=== PATIENT | female | born 1945 | race Caucasian/White ===

== ENCOUNTER 2017-05-06 09:50 | Emergency (ER) | payer OTHER ==
[2017-05-06 10:04] VITALS: BMI 35.7
[2017-05-06] MEDS ORDERED: SODIUM CHLORIDE 1,000 ML IV STA (11:00)
--- NOTE | 2017-05-06 11:48 | PDOC ---
History of Present Illness - General Chief Complaint: Diarrhea Stated Complaint: WEAKNESS Time Seen by Provider: 05/06/17 10:24 History Source: Patient Exam Limitations: No Limitations - History of Present Illness Travel History: No Initial Comments: 05/06/17 11:48 72-year-old female with history of diverticulitis hypertension and hypothyroidism presents to the emergency room with complaints of diarrhea for the past 4 days which she describes as a brown water and [id number] stool. Patient states 5 days prior she had eaten eggplant but states which she initially thought aggravated her diverticulitis and so took Imodium with moderate improvement but only to return the following day. Patient denies specific abdominal tenderness but states generalized abdominal cramping. Patient denies fever, chills, nausea, dysuria, back pain, chest pain, shortness of breath. Patient states did not take her blood pressure medication this morning and called Dr. Webster her GI physician who's nurse, recommended she come to the ER. Timing/Duration: reports: intermittent Quality: reports: mild, cramping Abdominal Pain Onset Location: reports: generalized abdomen Pain Radiation: reports: no radiation Activities at Onset: reports: none Aggravating Factors: improves with: Eating Alleviating Factors: improves with: None Past History - Past Medical History Allergies/Adverse Reactions: Allergies Allergy/AdvReac Type Severity Reaction Status Date / Time No Known Allergies Allergy Verified 05/06/17 10:04 Home Medications: Ambulatory Orders Imipramine HCl 25 mg PO DAILY 05/06/17 Levothyroxine [Synthroid -] 50 mcg PO DAILY 05/06/17 Simvastatin [Zocor -] 20 mg PO HS 05/06/17 Valsartan/Hydrochlorothiazide [Valsartan-Hctz 80-12.5 mg Tab] 1 each PO DAILY GI Disorders: Yes (DIVERTICULITIS) HTN: Yes Hypercholesterolemia: Yes Seizures: Yes - Psycho/Social/Smoking Cessation Hx Suicidal Ideation: No Smoking History: Never smoked Information on smoking cessation initiated: No Patient Lives Alone: No Lives with/in: spouse/SO Abd/GI Specific PMHX - Complaint Specific PMHX Diverticulitis: Yes Review of Systems - Review of Systems Able to Perform ROS?: Yes Constitutional: Yes: Weakness HEENTM: No: Symptoms Reported Respiratory: No: Symptoms reported Cardiac (ROS): No: Symptoms Reported ABD/GI: No: Symptoms Reported : No: Symptoms Reported Musculoskeletal: No: Symptoms Reported Integumentary: No: Symptoms Reported Neurological: No: Symptoms reported *Physical Exam - Vital Signs Last Vital Signs Temp Pulse Resp BP Pulse Ox 97.7 F 68 18 159/71 97 05/06/17 10:00 05/06/17 10:00 05/06/17 10:00 05/06/17 10:00 05/06/17 10:00 - Physical Exam General Appearance: Yes: Nourished, Appropriately Dressed. No: Apparent Distress HEENT: positive: Pharynx Normal. negative: Pale Conjunctivae Respiratory/Chest: positive: Lungs Clear, Normal Breath Sounds. negative: Respiratory Distress, Accessory Muscle Use Cardiovascular: positive: Regular Rhythm, Regular Rate. negative: Murmur Gastrointestinal/Abdominal: positive: Normal Bowel Sounds, Soft, Tenderness ( mild generalized). negative: Distended, Guarding, Rebound Musculoskeletal: negative: CVA Tenderness Extremity: positive: Normal Capillary Refill. negative: Pedal Edema Integumentary: positive: Normal Color, Warm, Moist Neurologic: positive: Motor Strength 5/5 (ambulatory) ED Treatment Course - LABORATORY CBC & Chemistry Diagram: 05/06/17 11:34 05/06/17 11:34 - RADIOLOGY Radiology Studies Ordered: Category Date Time Status ABDOMEN & PELVIS CT W/O CONTR [CT] Stat CT Scan 05/06/17 11:00 Ordered Medical Decision Making - Medical Decision Making 05/06/17 11:53 patient with complaints of intermittent diarrhea for the past which and was amping. Patient does e history of diverticulitis and was told by her [facility] nurse to come to the ER for further evaluation. Patient examined generalized mild tenderness normal vital signs. Based on patient's history of prent illness and clinical presentation. patient will have labs including magnesium, IV fluid, urinalysis due to recent UTI [address] with by mouth contrast only. 05/06/17 15:22 Laboratory Tests 05/06/17 05/06/17 05/06/17 11:34 11:34 11:34 WBC 7.8 Hgb 14.6 Hct 43.2 Plt Count 199 Sodium 140 Potassium 3.8 Chloride 105 Carbon Dioxide 26 Anion Gap 9 BUN 12 Creatinine 0.6 Lactic Acid 1.6 Magnesium 2.2 Urine Blood Urine Nitrite Ur Leukocyte Esterase 05/06/17 12:05 WBC Hgb Hct Plt Count Sodium Potassium Chloride Carbon Dioxide Anion Gap BUN Creatinine Lactic Acid Magnesium Urine Blood 1+ H Urine Nitrite Negative Ur Leukocyte Esterase 1+ H CT shows a 2.1 cm mass identified within the right lower lobe as seen on image 22. Centrilobular emphysema changes are present. There is no obstruction within the bowel and noted uncomplicated diverticulosis of the colon. There is no mesenteric stranding free air/fluid or drainable fluid collection seen. In regards to the mass malignancy is to be excluded. Call will be placed to Dr. Webster patient's br[facility]. 05/06/17 15:[address] Webster's nurse Sue who states to send patient to the office with a stool specimen so she may check for C. difficile. Patient attempted to go here twice with no result. Patient states had the nodule to the right lower lobe biopsy which was negative a few months ago. Will discharge patient home with recommendations to eat stool binding foods *DC/Admit/Observation/Transfer Diagnosis at time of Disposition: Generalized abdominal pain Diarrhea Qualifiers: Diarrhea type: unspecified type Qualified Code(s): R19.7 - Diarrhea, unspecified - Discharge Dispostion Disposition: HOME Condition at time of disposition: Good - Referrals Referrals: Mary Mcconnell [Primary Care Provider] - Loly Baker MD [Staff Physician] - - Patient Instructions Printed Discharge Instructions: DI for Diarrhea and Traveler's Diarrhea -- Adult Additional Instructions: Please try to obtain a specimen so that the nurse at Dr. Baker's office may sent for evaluation. If you develop bloody stool, fever, inability to tolerate by mouth, or severe abdominal pain please return to the ED
[2017-05-06 12:07] LABS: BASOPHIL 0.7 % (0-2.0); EOSINOPHIL 1.2 % (0-4.5); MCH 28.4 pg (25.7-33.7); MCHC 33.8 g/dl (32.0-36.0); MEAN PLT VOLUME 8.6 fl (7.5-11.1); NEUTROPHILS 66.4 % (42.8-82.8); PLATELET COUNT 199 K/MM3 (134-434); RDW 14.8 % (11.6-15.6); WHITE BLOOD COUNT 7.8 K/mm3 (4.0-10.0)
[2017-05-06 12:23] LABS: URINE APPEARANCE CLEAR; URINE BILIRUBIN NEGATIVE (NEGATIVE); URINE BLOOD 1+ (NEGATIVE); URINE COLOR LTYELLOW; URINE GLUCOSE (UA) NEGATIVE (NEGATIVE); URINE KETONE NEGATIVE (NEGATIVE); URINE NITRITE NEGATIVE (NEGATIVE); URINE PROTEIN NEGATIVE (NEGATIVE); URINE UROBILINOGEN NEGATIVE mg/dL (0.2-1.0)
[2017-05-06 12:23] LABS: ALBUMIN 3.8 g/dl (3.4-5.0); ALK PHOS 78 U/L (45-117); ANION GAP 9 (8-16); BILIRUBIN,TOTAL 0.5 mg/dL (0.2-1.0); CO2 26 mmol/L (21-32); CREATININE 0.6 mg/dL (0.55-1.02); GLUCOSE,RANDOM 91 mg/dL (74-106); SGPT/ALT 41 U/L (12-78); TOT PROT 6.6 g/dl (6.4-8.2)
[2017-05-06 12:26] LABS: MAGNESIUM 2.2 mg/dL (1.8-2.4); SGOT/AST 27 U/L (15-37)
[2017-05-06 12:28] LABS: URINE LEUK ESTERASE 1+ (NEGATIVE)
--- NOTE | 2017-05-06 12:53 | PDOC ---
*Physical Exam - Vital Signs Last Vital Signs Temp Pulse Resp BP Pulse Ox 97.7 F 68 18 159/71 97 05/06/17 10:00 05/06/17 10:00 05/06/17 10:00 05/06/17 10:00 05/06/17 10:00 ED Treatment Course - LABORATORY CBC & Chemistry Diagram: 05/06/17 11:34 05/06/17 11:34 - ADDITIONAL ORDERS Additional order review: Laboratory Results 05/06/17 05/06/17 05/06/17 12:05 11:34 11:34 Sodium Potassium Chloride Carbon Dioxide Anion Gap BUN Creatinine Creat Clearance w eGFR Random Glucose Lactic Acid 1.6 Calcium Magnesium Cancelled Total Bilirubin AST ALT Alkaline Phosphatase Total Protein Albumin Urine Color Ltyellow Urine Appearance Clear Urine pH 6.0 Urine Protein Negative Urine Glucose (UA) Negative Urine Ketones Negative Urine Blood 1+ H Urine Nitrite Negative Urine Bilirubin Negative Urine Urobilinogen Negative Ur Leukocyte Esterase 1+ H 05/06/17 11:34 Sodium 140 Potassium 3.8 Chloride 105 Carbon Dioxide 26 Anion Gap 9 BUN 12 Creatinine 0.6 Creat Clearance w eGFR > 60 Random Glucose 91 Lactic Acid Calcium 9.0 Magnesium 2.2 Total Bilirubin 0.5 AST 27 ALT 41 Alkaline Phosphatase 78 Total Protein 6.6 Albumin 3.8 Urine Color Urine Appearance Urine pH Urine Protein Urine Glucose (UA) Urine Ketones Urine Blood Urine Nitrite Urine Bilirubin Urine Urobilinogen Ur Leukocyte Esterase 05/06/17 11:34 RBC 5.15 MCV 84.0 MCHC 33.8 RDW 14.8 MPV 8.6 Neutrophils % 66.4 Lymphocytes % 21.7 Monocytes % 10.0 Eosinophils % 1.2 Basophils % 0.7 - Medications Given in the ED: ED Medications Discontinued Medications Generic Name Dose Route Start Last Admin Trade Name Freq PRN Reason Stop Dose Admin Sodium Chloride 1,000 mls @ 1,000 mls/hr 05/06/17 11:00 05/06/17 11:40 Normal Saline - IV 05/06/17 11:59 1,000 mls/hr ASDIR STA Administration Medical Decision Making - Medical Decision Making 05/06/17 12:52 Patient seen and evaluated with the nurse practitioner. I agree with the overall evaluation, assessment, and management with the following summary of visit: 72-year-old female with history of diverticulitis presents with diarrhea and abdominal pain. Vital signs normal, agree with the exam as outlined Agree with plan for labs, urinalysis, CAT scan. *DC/Admit/Observation/Transfer Diagnosis at time of Disposition: Generalized abdominal pain
[2017-05-06 16:26] VITALS: BP 144/88; PULSE 70; TEMP 97.8
== END 2017-05-06 16:26 | disposition home or self-care (01) ==
LOC: JER 09:50
PROC: 3E0337Z Introduction of Electrolytic and Water Balance Substance into Peripheral Vein, Percutaneous Approach (ICD-10-PCS; principal; 2017-05-06)
DX: R10.84 Generalized abdominal pain (principal); R19.7 Diarrhea, unspecified; I10 Essential (primary) hypertension; E03.9 Hypothyroidism, unspecified; Z87.19 Personal history of other diseases of the digestive system; Z86.69 Personal history of other diseases of the nervous system and sense organs
CPT/HCPCS: 36415; 74176-TC; 80053; 81003; 81015; 83605; 83735; 85025; 87086; 96360; 99282-25; Q9967